=== PATIENT | female | born 1975 | race American Indian/Alaskan Native ===

== ENCOUNTER 2019-09-14 21:17 | Inpatient (IN) | payer SELFPAY ==
--- NOTE | 2019-09-14 21:45 | Event Note ---
ED Screening Note ED Screening Note: This initial assessment/diagnostic orders/clinical plan/treatment(s) is/are subject to change based on patients health status, clinical progression and re- assessment by fellow clinical providers in the ED. Further treatment and workup at subsequent clinical providers discretion. Patient/guardian urged not to elope from the ED as their condition may be serious if not clinically assessed and managed. Initial orders include: 44 BF c/o CP abdominal pain and diarrhea x 1 day.
--- NOTE | 2019-09-14 22:07 | XRay Report ---
CHEST 1 VIEW 09/14/2019 9:48 PM INDICATION / CLINICAL INFORMATION: Chest Pain. COMPARISON: None available. FINDINGS: SUPPORT DEVICES: None. HEART / MEDIASTINUM: No significant abnormality. LUNGS / PLEURA: No significant pulmonary or pleural abnormality. No pneumothorax. ADDITIONAL FINDINGS: No significant additional findings. IMPRESSION: 1. No acute findings. Signer Name: Butch Pitt MD Signed: 09/14/2019 10:03 PM Workstation Name: [id number]
[2019-09-14] MEDS ORDERED: NACL 0.9% 1000 ML 1,000 ML IV ONE ×2 (22:18→23:36)
[2019-09-14] MEDS ORDERED: HALDOL IM STA (22:18)
[2019-09-14] MEDS ORDERED: PEPCID IV ONE (22:19)
[2019-09-14] MEDS ORDERED: ZOSTRIX HP TP STA (22:20)
--- NOTE | 2019-09-14 22:22 | Emergency Department Report ---
ED General Adult HPI - General Chief complaint: Chest Pain Stated complaint: CX PAIN LUPUS STOMACH/BACK PAIN Time Seen by Provider: 09/14/19 22:01 Source: patient Mode of arrival: Wheelchair Limitations: Physical Limitation - History of Present Illness Initial comments: During the history and physical, I am chaperoned by nurse Peggy Gomez This is a 44-year-old female. This patient is not known to this provider previously. The patient is visiting from [facility]. Her past medical history includes lupus, stroke, heart attack, hypertension, stent, cannabis use. The patient reports that she arrived in the [facility] on Friday. It is currently Friday. She reports that since Friday, she's had multiple episodes of nausea and vomiting. Currently, her emesis is bloody. This is accompanied by central chest wall pain, abdominal pain and diarrhea. The patient denies urinary symptoms. She reports that she feels weak and fatigued. She reports that in [place], her symptoms typically improve with morphine, Reglan, and Zofran. -: Gradual, days(s) Location: chest, pelvis Radiation: back Quality: aching Consistency: constant Improves with: none Worsens with: movement - Related Data Allergies Allergy/AdvReac Type Severity Reaction Status Date / Time acetaminophen [From Tylenol] Allergy Unknown Verified 09/14/19 21:23 ED Review of Systems ROS: Stated complaint: CX PAIN LUPUS STOMACH/BACK PAIN Other details as noted in HPI Constitutional: malaise, weakness Eyes: denies: eye discharge ENT: denies: congestion Respiratory: denies: wheezing Cardiovascular: chest pain Gastrointestinal: abdominal pain, nausea, vomiting, diarrhea, hematemesis. denies: melena, hematochezia Genitourinary: denies: dysuria Musculoskeletal: back pain, myalgia Skin: denies: lesions Neurological: weakness Psychiatric: anxiety ED Past Medical Hx - Past Medical History Previous Medical History?: Yes Hx Hypertension: Yes Hx CVA: Yes Hx Heart Attack/AMI: Yes Additional medical history: lupus - Surgical History Past Surgical History?: Yes Hx Coronary Stent: Yes - Social History Smoking Status: Current Every Day Smoker Substance Use Type: None ED Physical Exam - General Limitations: Physical Limitation General appearance: alert, anxious, in distress - Head Head exam: Present: atraumatic, normocephalic - Eye Eye exam: Present: normal appearance, EOMI. Absent: nystagmus - ENT ENT exam: Present: mucous membranes dry, normal external ear exam - Neck Neck exam: Present: normal inspection, full ROM. Absent: tenderness, meningismus - Respiratory Respiratory exam: Present: normal lung sounds bilaterally, chest wall t enderness. Absent: respiratory distress - Cardiovascular Cardiovascular Exam: Present: normal rhythm, tachycardia, normal heart sounds. Absent: systolic murmur, diastolic murmur, rubs, gallop - GI/Abdominal GI/Abdominal exam: Present: soft, tenderness, other (abdomen is soft but diffusely tender. There is no rebound, guarding or peritoneal signs). Absent: distended, guarding, rebound, rigid, pulsatile mass - Extremities Exam Extremities exam: Present: normal inspection, full ROM, other (2+ pulses noted in the bilateral upper, lower extremities. There is no long bone tenderness. Musculoskeletal compartments are soft. The pelvis is stable.) - Back Exam Back exam: Present: normal inspection. Absent: CVA tenderness (R), paraspinal tenderness - Neurological Exam Neurological exam: Present: alert, other (is no facial droop. The tongue is midline. Extraocular movements are intact bilaterally. 5 out of 5 strength in 4 extremities.) - Psychiatric Psychiatric exam: Present: anxious - Skin Skin exam: Present: warm, dry, intact, normal color. Absent: rash ED Course Vital Signs 09/14/19 21:40 Temperature 97.6 F Pulse Rate 99 H Respiratory 18 Rate Blood Pressure 114/86 O2 Sat by Pulse 97 Oximetry - Reevaluation(s) Reevaluation #1: 09/14/19 23:43 Differential diagnosis, including not limited to: Obstruction, cyclic vomiting syndrome, narcotic bowel syndrome, cannabinoid hyperemesis syndrome, lupus fl are, Diana-Resendiz tear, upper GI bleed, GERD, gastritis, hiatal hernia, acute coronary syndrome, pulmonary embolism, pneumonia, irritable bowel syndrome, inflammatory bowel disease Assessment and plan: 44-year-old female with multiple medical issues with complaint of intractable nausea or vomiting, having active bloody emesis, tachycardia, laboratory studies demonstrate evidence of dehydration and anion gap acidosis, likely secondary to bicarbonate losses, likely secondary to nausea, vomiting and diarrhea. The patient is afebrile, and her tachycardia has resolved. Given her history of lupus, and recent travel from the [facility], a d- dimer was sent, and found to be slightly elevated. I think it is very unlikely that a pulmonary embolism is a single causative etiology to her presentation, however, nuclear medicine study is ordered. A CT scan of the abdomen and pelvis is ordered. Patient was started on a Protonix drip. Her symptoms were improved with intramuscular haloperidol. She'll need to be admitted to the medical service. We will await the remainder of her diagnostic studies. Reevaluation #2: 09/14/19 23:48 Stress with gastroenterology, Dr. Reza Ureña, who agrees to follow in consultation. Leukocytosis of 14,000 likely due to stress reaction, and hemoconcentration. Patient's laboratory studies demonstrating elevated hemoglob in and hematocrit at this time, also likely secondary to hemo- concentration. Reevaluation #3: 09/15/19 01:28 Nuclear medicine study is low probability for pulmonary embolism. X-ray the chest unremarkable. X-ray of the abdomen pelvis unremarkable. CT scan pending. Patient had complained of additional nausea, therefore, additional haloperidol was ordered. Urinalysis is pending at this time. Reevaluation #4: 09/15/19 02:38 Nuclear medicine study is low probability for pulmonary embolism. CT scan abdomen and pelvis demonstrates right-sided colitis, antibiotics, additional fluids, blood cultures ordered. Please note that there is delayed antibiotic administration as it took a very long time for the patient's diagnostics to be resulted. In addition, a small left-sided segmental pulmonary embolism is noted. Given that she has presumed active upper GI bleed, we would not empirically anticoagulate this at this time. The case was presented to Hospital physician, Dr. Barboza, who has accepted the patient to her service. ED Medical Decision Making - Lab Data Result diagrams: 09/15/19 00:06 09/14/19 22:25 Vital Signs 09/14/19 21:40 Temperature 97.6 F Pulse Rate 99 H Respiratory 18 Rate Blood Pressure 114/86 O2 Sat by Pulse 97 Oximetry Lab Results 09/14/19 09/14/19 09/14/19 Range/Units 22:25 22:25 22:25 PT 13.7 (12.2-14.9) Sec. INR 1.08 (0.87-1.13) D-Dimer 251.76 H (0-234) ng/mlDDU Sodium 149 H (137-145) mmol/L Potassium 3.4 L (3.6-5.0) mmol/L Chloride 98.8 (98-107) mmol/L Carbon Dioxide 13 L (22-30) mmol/L Anion Gap 41 mmol/L BUN 21 H (7-17) mg/dL Creatinine 1.1 (0.7-1.2) mg/dL Estimated GFR 54 ml/min BUN/Creatinine Ratio 19 % Glucose 94 (65-100) mg/dL Calcium 10.7 H (8.4-10.2) mg/dL Magnesium 2.70 H (1.7-2.3) mg/dL Total Bilirubin 0.60 (0.1-1.2) mg/dL Direct Bilirubin 0.2 (0-0.2) mg/dL Indirect Bilirubin 0.4 mg/dL AST 17 (5-40) units/L ALT 13 (7-56) units/L Alkaline Phosphatase 85 (35-129) units/L Total Creatine Kinase 136 H (30-135) units/L Troponin T < 0.010 (0.00-0.029) ng/mL Total Protein 9.7 H (6.3-8.2) g/dL Albumin 5.5 H (3.9-5) g/dL Albumin/Globulin Ratio 1.3 % Lipase (13-60) units/L HCG, Quant (0-4) mIU/mL 09/14/19 09/14/19 Range/Units 22:25 22:25 PT (12.2-14.9) Sec. INR (0.87-1.13) D-Dimer (0-234) ng/mlDDU Sodium (137-145) mmol/L Potassium (3.6-5.0) mmol/L Chloride (98-107) mmol/L Carbon Dioxide (22-30) mmol/L Anion Gap mmol/L BUN (7-17) mg/dL Creatinine (0.7-1.2) mg/dL Estimated GFR ml/min BUN/Creatinine Ratio % Glucose (65-100) mg/dL Calcium (8.4-10.2) mg/dL Magnesium (1.7-2.3) mg/dL Total Bilirubin (0.1-1.2) mg/dL Direct Bilirubin (0-0.2) mg/dL Indirect Bilirubin mg/dL AST (5-40) units/L ALT (7-56) units/L Alkaline Phosphatase (35-129) units/L Total Creatine Kinase (30-135) units/L Troponin T (0.00-0.029) ng/mL Total Protein (6.3-8.2) g/dL Albumin (3.9-5) g/dL Albumin/Globulin Ratio % Lipase 7 L (13-60) units/L HCG, Quant 0.886 (0-4) mIU/mL - EKG Data -: EKG Interpreted by Nh - EKG Data 09/14/19 23:43 The EKG is limited by motion artifact. There is no prior EKG available for comparison. This is a sinus tachycardia, 106 bpm, borderline leftward axis deviation, Q waves noted in the inferior leads, there is motion artifact, there is low voltage, the EKG is abnormal, the EKG is not consistent with ST elevation myocardial infarction. - Radiology Data Radiology results: pending, report reviewed, image reviewed Print Report Referring Physician: PAULA JOHNSON Patient Name: ANNETTE NAYAK Date of : 1975 Sex: Female Report Date: 2019-09-14 Report Status: Finalized Findings [facility] [address] [place] [address] XRay Report Signed Patient: ANNETTE NAYAK MR#: [id number] : 1975 Acct:[id number] Age/Sex: 44 / F ADM Date: 09/14/19 Loc: ED Attending Dr: Ordering Physician: PAULA JOHNSON MD Date of Service: 09/14/19 Procedure(s): XR chest 1V ap Accession Number(s): [id number] cc: PAULA JOHNSON MD Fluoro Time In Minutes: CHEST 1 VIEW 09/14/2019 9:48 PM INDICATION / CLINICAL INFORMATION: Chest Pain. COMPARISON: None available. FINDINGS: SUPPORT DEVICES: None. HEART / MEDIASTINUM: No significant abnormality. LUNGS / PLEURA: No significant pulmonary or pleural abnormality. No pneumothorax. ADDITIONAL FINDINGS: No significant additional findings. IMPRESSION: 1. No acute findings. Signer Name: Butch Pitt MD Signed: 09/14/2019 10:03 PM Workstation Name: [id number] Transcribed By: TL Dictated By: Butch Pitt MD Electronically Authenticated By: Butch Pitt MD Signed Date/Time: 09/14/19 9369 Critical Care Time: Yes Critical care time in (mins) excluding proc time.: 35 Critical care attestation.: If time is entered above; I have spent that time in minutes in the direct care of this critically ill patient, excluding procedure time. ED Disposition Clinical Impression: UGIB (upper gastrointestinal bleed), Dehydration, Nausea and vomiting, SIRS (systemic inflammatory response syndrome), Pulmonary embolism Disposition: DC-09 OP ADMIT IP TO THIS HOSP Is pt being admited?: Yes Condition: Serious
[2019-09-14 23:15] LABS: Albumin 5.5 g/dL (3.9-5); Bilirubin,Direct 0.2 mg/dL (0-0.2)
[2019-09-14 23:23] LABS: BUN/Creatinine Ratio 19; Blood Urea Nitrogen 21 mg/dL (7-17); Calcium 10.7 mg/dL (8.4-10.2); Hemolysis Index 15
[2019-09-14 23:27] LABS: INR 1.08 (0.87-1.13)
[2019-09-14 23:43] LABS: Basophils % (Auto) 0.3 % (0.0-1.8); Hematocrit 52.7 % (30.3-42.9); Hemoglobin 17.5 gm/dl (10.1-14.3); Lymphocytes # (Auto) 1.3 K/mm3 (1.2-5.4); Lymphocytes % (Auto) 9.4 % (13.4-35.0); Mean Corpuscular HGB Conc 33 % (30-34); Mean Corpuscular Volume 90 fl (79-97); Monocytes # (Auto) 0.6 K/mm3 (0.0-0.8); Monocytes % (Auto) 4.4 % (0.0-7.3); Platelet Count 480 K/mm3 (140-440); Red Blood Count 5.86 M/mm3 (3.65-5.03); Red Cell Distribution Width 14.2 % (13.2-15.2)
[2019-09-14] MEDS ORDERED: PROTONIX 80 MG in NACL 0.9% 100 ML IV SCH (23:45)
[2019-09-15] MEDS: KCL 10MEQ/100ML 10 MEQ/100 ML BAG IV SCH ×6 (00:21→10:00)
[2019-09-15 00:24] LABS: Hematocrit 51.3 % (30.3-42.9); Hemoglobin 17.2 gm/dl (10.1-14.3); Mean Corpuscular HGB Conc 33 % (30-34); Mean Corpuscular Volume 90 fl (79-97); Platelet Count 431 K/mm3 (140-440); Red Blood Count 5.72 M/mm3 (3.65-5.03); Red Cell Distribution Width 13.9 % (13.2-15.2)
[2019-09-15] MEDS ORDERED: HALDOL IM ONE (00:45)
--- NOTE | 2019-09-15 00:52 | XRay Report ---
ABDOMEN, 2 VIEWS 09/14/2019 INDICATION / CLINICAL INFORMATION: cp abd pain. COMPARISON: None available. FINDINGS: The intestinal gas pattern is normal. No evidence of pneumoperitoneum. Signer Name: Hari Valencia MD Signed: 09/15/2019 12:48 AM Workstation Name: [id number]
[2019-09-15] MEDS ORDERED: HALDOL IM PRN (00:56)
--- NOTE | 2019-09-15 01:08 | Nuclear Medicine Report ---
NM lung scan perf/vent INDICATION / CLINICAL INFORMATION: cp n/v. TECHNIQUE: Dose / Agent / Route: 5.3mCi technetium 99m MAA IV and 19.7mCi xenon-133 inhaled. COMPARISON: 09/14/2019 AP chest x-ray FINDINGS: Perfusion imaging is normal, no segmental or subsegmental perfusion defects. Ventilation images are normal. IMPRESSION: 1. Low probability for pulmonary embolism. Signer Name: Hari Valencia MD Signed: 09/15/2019 1:04 AM Workstation Name: [id number]
[2019-09-15] MEDS ORDERED: FLAGYL 500 MG/100 ML 500 MG/100 ML BAG IV ONE (02:35)
[2019-09-15] MEDS ORDERED: LEVAQUIN 500MG/100ML 500 MG/100 ML BAG IV ONE (02:35)
[2019-09-15] MEDS ORDERED: NACL 0.9% 500 ML 500 ML IV ONE (02:35)
--- NOTE | 2019-09-15 02:40 | Cat Scan Report ---
CT abdomen pelvis w con INDICATION / CLINICAL INFORMATION: abd pain n/vq. TECHNIQUE: All CT scans at this location are performed using CT dose reduction for ALARA by means of automated e xposure control. COMPARISON: None available. FINDINGS: Limited lower thoracic images a left lower lobe pulmonary arterial filling defect suggesting acute pu lmonary embolus.. A small hiatal hernia is identified. ABDOMEN: Mild hepatic parenchymal hypoattenuation is consistent with fatty infiltration. No focal hepatic lesi ons. The gallbladder, spleen, pancreas and adrenal glands are normal. No urinary calculi or hydronephrosis. A small left lower pole renal cyst is noted No mesenteric or retroperitoneal adenopathy. Mild mural edema is seen in the right colon. No small bowel distention or mesenteric edema. Pelvis: The appendix is normal. Diverticulosis is seen in the distal descending and sigmoid colon without evidence of acute diverticu litis. No dependent fluid collections are identified in the pelvis. Bilateral gluteal augmentation implants with no complication. No osseous abnormality. IMPRESSION: 1. Pulmonary embolism in the left lower lobe pulmonary artery. 2. Findings in the right colon suggesting colitis. 3. Left-sided diverticulosis. CRITICAL RESULT: Time of Discovery: 0129 hours Time of Communication: 0133 hours Licensed Practitioner Receiving Report: Dr Velásquez Read Back Performed: Yes. Signer Name: Hari Valencia MD Signed: 09/15/2019 2:35 AM Workstation Name: [id number]
[2019-09-15] MEDS ORDERED: SODIUM CHLORIDE FLUSH SYRINGE 10 ML IV PRN (03:11)
--- NOTE | 2019-09-15 03:16 | History and Physical Report ---
History of Present Illness Date of examination: 09/15/19 History of present illness: 44 -year-old woman with a history of lupus, CVA, coronary artery disease, hypertension, came from [place] on Friday to [place] 's emergency room with complaints of chest pain located in the left substernal area which she describes a sharp pain, started today, constant, no radiation, can't identify exacerbating or relieving factors. She's been having multiple episodes of nausea vomiting since she got here on Friday and state that she had multiple episodes of hematemesis. Also complaining of abdominal pain that also started on Friday which is sharp, constant, no radiation, intensity 6/10, cannot identify exacerbating factor. Admits to diarrhea, subjective fever and chills. Denies any blood in the stool. She is on Eliquis but has not taken Eliquis since Friday when her symptoms started eview Of Systems: Constitutional: no weight loss, fever, chills Ears, eyes, nose, mouth and throat: no nasal congestion, no nasal discharge, no sinus pressure, blurry vision, diplopia Neck: No neck pain or rigidity. Cardiovascular: No palpitations Respiratory: No shortness of breath, cough Gastrointestinal: No hematochezia Genitourinary : no dysuria, frequency , hematuria Musculoskeletal: no muscle ache , joint pain Integumentary: no rash, no pruritis Neurological: no parathesias, focal weakness Endocrine: no cold or heat intolerance, no polyuria or polydipsia Hematologic/Lymphatic: no easy bruising, no easy bleeding, no gland swelling Allergic/Immunologic: no urticaria, no angioedema. PAST MEDICAL HISTORY:lupus, CVA, coronary artery disease, hypertension PAST SURGICAL HISTORY: None FAMILY HISTORY:hypertension, diabetes SOCIAL HISTORY: Smoked 1 pack a day, + marijuana, no alcohol Medications and Allergies Allergies Allergy/AdvReac Type Severity Reaction Status Date / Time acetaminophen [From Tylenol] Allergy Unknown Verified 09/14/19 21:23 Active Meds: Active Medications Pantoprazole Sodium 80 mg/ (Sodium Chloride) 100 mls @ 10 mls/hr IV DIRECT YAN Last Admin: 09/15/19 00:21 Dose: 8 mg/hr, 10 mls/hr Documented by: Levofloxacin/Dextrose (Levaquin 500mg/100ml) 500 mg in 100 mls @ 100 mls/hr IV ONCE ONE; Protocol Stop: 09/15/19 03:34 Sodium Chloride (Nacl 0.9% 1000 Ml) 1,000 mls @ 125 mls/hr IV DIRECT YAN Metronidazole (Flagyl 500 Mg/100 Ml) 500 mg in 100 mls @ 100 mls/hr IV Q8HR YAN; Protocol Levofloxacin/Dextrose (Levaquin 750mg/150ml) 750 mg in 150 mls @ 100 mls/hr IV Q24HR YAN; Protocol Morphine Sulfate (Morphine) 2 mg IV Q4H PRN PRN Reason: Pain, Moderate (4-6) Ondansetron HCl (Zofran) 4 mg IV Q8H PRN PRN Reason: Nausea And Vomiting Sodium Chloride (Sodium Chloride Flush Syringe 10 Ml) 10 ml IV BID YAN Sodium Chloride (Sodium Chloride Flush Syringe 10 Ml) 10 ml IV PRN PRN PRN Reason: LINE FLUSH Exam - Physical Exam Narrative exam: General Apperance: The patient sitting in bed no acute distress HEENT: Normocephalic, atraumatic. Pupils equally round and reactive to light, extraocular movement intact, and no sclericterus or JVD or thyromegaly or nodule. Neck supple, no carotid bruit, mucous membranes moist, no exudate or erythema Heart: S1-S2, regular is rhythm Lungs: Clear to auscultation bilaterally, breathing comfortable Abdomen: Positive bowel sounds, soft, tender all over, nondistended, no organomegaly Extremities: No edema cyanosis clubbing Skin: no rash, nodule, warm and dry Neuro:CN 2 -12 intact, motor/sensory intact, speech is fluent - Constitutional Vitals: Temp Pulse Resp BP Pulse Ox 97.6 F 99 H 18 114/86 97 09/14/19 21:40 09/14/19 21:40 09/14/19 21:40 09/14/19 21:40 09/14/19 21:40 Results - Labs CBC & Chem 7: 09/15/19 00:06 09/14/19 22:25 Labs: Abnormal lab results 09/14/19 09/14/19 09/14/19 Range/Units 22:25 22:25 22:25 WBC 14.0 H (4.5-11.0) K/mm3 RBC 5.86 H (3.65-5.03) M/mm3 Hgb 17.5 H (10.1-14.3) gm/dl Hct 52.7 H (30.3-42.9) % Plt Count 480 H (140-440) K/mm3 Lymph % (Auto) 9.4 L (13.4-35.0) % Seg Neutrophils % 85.9 H (40.0-70.0) % Seg Neutrophils # 12.0 H (1.8-7.7) K/mm3 D-Dimer 251.76 H (0-234) ng/mlDDU Sodium 149 H (137-145) mmol/L Potassium 3.4 L (3.6-5.0) mmol/L Carbon Dioxide 13 L (22-30) mmol/L BUN 21 H (7-17) mg/dL Calcium 10.7 H (8.4-10.2) mg/dL Magnesium (1.7-2.3) mg/dL Total Creatine Kinase (30-135) units/L Total Protein (6.3-8.2) g/dL Albumin (3.9-5) g/dL Lipase (13-60) units/L 09/14/19 09/14/19 09/15/19 Range/Units 22:25 22:25 00:06 WBC 14.4 H (4.5-11.0) K/mm3 RBC 5.72 H (3.65-5.03) M/mm3 Hgb 17.2 H (10.1-14.3) gm/dl Hct 51.3 H (30.3-42.9) % Plt Count (140-440) K/mm3 Lymph % (Auto) (13.4-35.0) % Seg Neutrophils % (40.0-70.0) % Seg Neutrophils # (1.8-7.7) K/mm3 D-Dimer (0-234) ng/mlDDU Sodium (137-145) mmol/L Potassium (3.6-5.0) mmol/L Carbon Dioxide (22-30) mmol/L BUN (7-17) mg/dL Calcium (8.4-10.2) mg/dL Magnesium 2.70 H (1.7-2.3) mg/dL Total Creatine Kinase 136 H (30-135) units/L Total Protein 9.7 H (6.3-8.2) g/dL Albumin 5.5 H (3.9-5) g/dL Lipase 7 L (13-60) units/L - Imaging and Cardiology Chest x-ray: report reviewed Abdominal x-ray: report reviewed CT scan - abdomen: report reviewed CT scan - pelvis: report reviewed Assessment and Plan VQ scan showed low probability Assessment Acute colitis Pulmonary emboli Hematemesis Chest pain upus CVA coronary artery disease hypertension Plan Admit to medicine Start IV Levaquin, Flagyl, obtain stool cultures Check serial hemoglobin, continue Protonix drip, IVF No anticoagulation at this point, consult pulmonary, GI Cardiac enzymes, DVT prophylaxis, replete potassium
[2019-09-15] MEDS ORDERED: NACL 0.9% 1000 ML 1,000 ML IV SCH ×2 (04:00→12:00)
[2019-09-15 05:55] LABS: Creatine Kinase MB 2.7 ng/mL (0.0-4.0)
[2019-09-15] MEDS: MORPHINE IV PRN ×2 (06:57→12:53)
[2019-09-15] MEDS: ZOFRAN IV PRN ×2 (06:57→12:53)
[2019-09-15] MEDS ORDERED: D5NS 1,000 ML IV SCH (10:00)
[2019-09-15] MEDS ORDERED: ELIQUIS PO SCH (10:00)
--- NOTE | 2019-09-15 10:24 | Gastroenterology Consultation ---
History of Present Illness - Reason for Consult Consult date: 09/15/19 UGIB Requesting physician: PAULA JOHNSON - History of Present Illness Patient is a 44 y/o female with multiple medical conditions (lupus, CVA, CAD, HTN, clotting disorder?, etc.) who presented to ED with c/o CP, diffuse abd pain, N/V with bloody emesis, diarrhea, and fever/chills that began on Friday. Upon admission, NM scan showed a small left-sided segmental pulmonary embolism (anticoagulation currently being held due to GI bleed) and abd CT showed colitis. GI has been consulted for UGIB. This morning patient was resting in bed w/o acute distress but ill appearing (multiple episodes of vomiting during exam with non-bloody clear/bilious emesis). She reports multiple episodes of N/V that began on Friday with initial emesis being non-bloody, then became bloody yesterday with bright red blood. Denies SOB, wt loss, melena, constipation, or hematochezia. No hx of PUD or liver disease. Takes Eliquis (last dose Friday) and ASA at home. She states she has had multiple similar episodes of current GI symptoms (abd pain with N/V/D) in the past requiring hospitalizations with undergoing last EGD in July of this year while in [place] with no significant findings such as an ulcer. Unable to recall last colonoscopy. No hx or Fhx of IBD. No recent abx therapy, consumption of contaminated food/drink, or ill contacts. Admits to occasional marijuana use (states she has not used in last 4- 6 wks). Past History Past Medical History: other (as per HPI) Past Surgical History: Other (coronary stent) Social history: smoking, other (marijuana) Family history: diabetes, hypertension Medications and Allergies Allergies Allergy/AdvReac Type Severity Reaction Status Date / Time acetaminophen [From Tylenol] Allergy Unknown Verified 09/14/19 21:23 Active Meds: Active Medications Apixaban (Eliquis) 10 mg PO Q12HR YAN; Protocol Stop: 09/21/19 23:59 Metronidazole (Flagyl 500 Mg/100 Ml) 500 mg in 100 mls @ 100 mls/hr IV Q8H YAN; Protocol Levofloxacin/Dextrose (Levaquin 750mg/150ml) 750 mg in 150 mls @ 100 mls/hr IV Q24H YAN; Protocol Potassium Chloride (Kcl 10meq/100ml) 10 meq in 100 mls @ 100 mls/hr IV Q1H YAN Stop: 09/15/19 10:59 Dextrose/Sodium Chloride (D5ns) 1,000 mls @ 100 mls/hr IV DIRECT YAN Morphine Sulfate (Morphine) 2 mg IV Q4H PRN PRN Reason: Pain, Moderate (4-6) Last Admin: 09/15/19 06:57 Dose: 2 mg Documented by: Ondansetron HCl (Zofran) 4 mg IV Q8H PRN PRN Reason: Nausea And Vomiting Last Admin: 09/15/19 06:57 Dose: 4 mg Documented by: Pantoprazole Sodium (Protonix) 40 mg PO QDAY YAN Sodium Chloride (Sodium Chloride Flush Syringe 10 Ml) 10 ml IV BID YAN Sodium Chloride (Sodium Chloride Flush Syringe 10 Ml) 10 ml IV PRN PRN PRN Reason: LINE FLUSH medications reviewed/updated as required Review of Systems - Review of Systems All systems: negative Cardiovascular: chest pain Gastrointestinal: abdominal pain (diffuse), nausea, vomiting, diarrhea, hematemesis Exam - Constitutional Vital Signs: Temp Pulse Resp BP Pulse Ox 97.6 F 114 H 16 124/77 94 09/14/19 21:40 09/14/19 23:15 09/15/19 06:08 09/15/19 01:30 09/15/19 01:30 General appearance: no acute distress, other (ill appearing) - EENT Eyes: PERRL, EOM intact ENT: hearing intact - Respiratory Respiratory effort: normal - Cardiovascular Rhythm: other (tachycardia) - Gastrointestinal General gastrointestinal: Present: soft, tender, non-distended, normal bowel sounds - Neurologic Neurological: alert and oriented x3 - Labs CBC & Chem 7: 09/15/19 07:03 09/14/19 22:25 Lab Results: Laboratory Results - last 24 hr 09/14/19 09/14/19 09/14/19 22:25 22:25 22:25 WBC 14.0 H RBC 5.86 H Hgb 17.5 H Hct 52.7 H MCV 90 MCH 30 MCHC 33 RDW 14.2 Plt Count 480 H Lymph % (Auto) 9.4 L Power % (Auto) 4.4 Eos % (Auto) 0.0 Baso % (Auto) 0.3 Lymph # 1.3 Power # 0.6 Eos # 0.0 Baso # 0.0 Seg Neutrophils % 85.9 H Seg Neutrophils # 12.0 H PT 13.7 INR 1.08 D-Dimer 251.76 H Sodium 149 H Potassium 3.4 L Chloride 98.8 Carbon Dioxide 13 L Anion Gap 41 BUN 21 H Creatinine 1.1 Estimated GFR 54 BUN/Creatinine Ratio 19 Glucose 94 Lactic Acid Calcium 10.7 H Magnesium Total Bilirubin Direct Bilirubin Indirect Bilirubin AST ALT Alkaline Phosphatase Total Creatine Kinase CK-MB (CK-2) CK-MB (CK-2) Rel Index Troponin T < 0.010 Total Protein Albumin Albumin/Globulin Ratio Lipase HCG, Quant Blood Type Antibody Screen 09/14/19 09/14/19 09/14/19 22:25 22:25 22:25 WBC RBC Hgb Hct MCV MCH MCHC RDW Plt Count Lymph % (Auto) Power % (Auto) Eos % (Auto) Baso % (Auto) Lymph # Power # Eos # Baso # Seg Neutrophils % Seg Neutrophils # PT INR D-Dimer Sodium Potassium Chloride Carbon Dioxide Anion Gap BUN Creatinine Estimated GFR BUN/Creatinine Ratio Glucose Lactic Acid Calcium Magnesium 2.70 H Total Bilirubin 0.60 Direct Bilirubin 0.2 Indirect Bilirubin 0.4 AST 17 ALT 13 Alkaline Phosphatase 85 Total Creatine Kinase 136 H CK-MB (CK-2) CK-MB (CK-2) Rel Index Troponin T Total Protein 9.7 H Albumin 5.5 H Albumin/Globulin Ratio 1.3 Lipase 7 L HCG, Quant 0.886 Blood Type Antibody Screen 09/14/19 09/15/19 09/15/19 22:40 00:06 00:12 WBC 14.4 H RBC 5.72 H Hgb 17.2 H Hct 51.3 H MCV 90 MCH 30 MCHC 33 RDW 13.9 Plt Count 431 Lymph % (Auto) Power % (Auto) Eos % (Auto) Baso % (Auto) Lymph # Power # Eos # Baso # Seg Neutrophils % Seg Neutrophils # PT INR D-Dimer Sodium Potassium Chloride Carbon Dioxide Anion Gap BUN Creatinine Estimated GFR BUN/Creatinine Ratio Glucose Lactic Acid Calcium Magnesium Total Bilirubin Direct Bilirubin Indirect Bilirubin AST ALT Alkaline Phosphatase Total Creatine Kinase CK-MB (CK-2) CK-MB (CK-2) Rel Index Troponin T < 0.010 Total Protein Albumin Albumin/Globulin Ratio Lipase HCG, Quant Blood Type A POSITIVE Antibody Screen Negative 09/15/19 09/15/19 09/15/19 05:21 05:21 07:03 WBC RBC Hgb 14.0 D Hct 42.0 D MCV MCH MCHC RDW Plt Count Lymph % (Auto) Power % (Auto) Eos % (Auto) Baso % (Auto) Lymph # Power # Eos # Baso # Seg Neutrophils % Seg Neutrophils # PT INR D-Dimer Sodium Potassium Chloride Carbon Dioxide Anion Gap BUN Creatinine Estimated GFR BUN/Creatinine Ratio Glucose Lactic Acid 0.90 Calcium Magnesium Total Bilirubin Direct Bilirubin Indirect Bilirubin AST ALT Alkaline Phosphatase Total Creatine Kinase 131 CK-MB (CK-2) 2.7 CK-MB (CK-2) Rel Index 2.0 Troponin T < 0.010 Total Protein Albumin Albumin/Globulin Ratio Lipase HCG, Quant Blood Type Antibody Screen Assessment and Plan 1.UGIB/hematemesis -INR 1.08, Plt WNL -H/H WNL (14.0/42.0) -continue to monitor and transfuse as needed -anticoagulation currently on hold (last dose of Eliquis Friday) -no active signs of bleeding this am (no melena or hematochezia)- currently HD stable -etiology-likely M-M tear given history vs other -will schedule for EGD today -Keep NPO -continue PPI and supportive care -further recommendations to follow EGD results 2.colitis seen on CT 3.diffuse abd pain (cramping) 4.N/V 5.diarrhea -afebrile -WBC 14.4 -LFTs and lipase WNL -stool studies pending -etiology unclear- possibly infectious vs other. patient with multiple prior episodes of similar GI complaints requiring multiple hospitalizations (in other states) with undergoing prior endoscopic evaluation with EGD/colonoscopy with negative results per pt report (records unavailable) -no plan for colonoscopy at this time -continue empiric antibiotics and supportive care 6.CP/PE 7.lupus 8.H/o CVA 9.CAD (s/p coronary stent) 10.HTN 11.H/o clotting disorder? (per pt report)
[2019-09-15 10:29] LABS: Creatine Kinase MB 3.3 ng/mL (0.0-4.0)
[2019-09-15] MEDS: SODIUM CHLORIDE FLUSH SYRINGE 10 ML IV SCH ×2 (10:46→23:06)
[2019-09-15] MEDS ORDERED: PROTONIX PO SCH ×2 (11:00→22:00)
[2019-09-15] MEDS ORDERED: DIPRIVAN 10 MG/ML IV ONE (11:23)
--- NOTE | 2019-09-15 11:27 | Anesthesia Consultation ---
Anesthesia Consult and Med Hx Date of service: 09/15/19 - Airway Anesthetic Teeth Evaluation: Good ROM Head & Neck: Adequate Mental/Hyoid Distance: Adequate Mallampati Class: Class III Intubation Access Assessment: Possibly Difficult - Pulmonary Exam CTA: Yes - Cardiac Exam Cardiac Exam: RRR - Pre-Operative Health Status ASA Pre-Surgery Classification: ASA3 Proposed Anesthetic Plan: MAC - Pulmonary Hx Smoking: No Hx Respiratory Symptoms: Yes (acute PE this admission; no supplemental O2 requirement) SOB: Yes (chronic) Home Oxygen Therapy: No - Cardiovascular System Hx Hypertension: Yes Hx Heart Attack/AMI: Yes (2012; last cardiology visit 6mos ago per patient) Hx Percutaneous Transluminal Coronary Angioplasty (PTCA): Yes (2012) Hx Cardia Arrhythmia: No (QTc 560 on admission EKG) - Central Nervous System CVA: Yes (2013 w/ residual R weakness) - Gastrointestinal Hx Gastroesophageal Reflux Disease: No (hematemesis this admission, none today) - Endocrine Hx Renal Disease: No (hx SLE but patient denies hx renal involvement) Hx Liver Disease: No Hx Insulin Dependent Diabetes: No Hx Non-Insulin Dependent Diabetes: No Hx Thyroid Disease: No - Hematic Hx Anemia: No (?clotting disorder) - Other Systems Hx Obesity: No
--- NOTE | 2019-09-15 11:27 | Anesthesia Day of Surgery ---
Anesthesia Day of Surgery - Day of Surgery Patient Examined: Yes Patient H&P Reviewed: Yes Patient is NPO: Yes
[2019-09-15] MEDS ORDERED: PROTONIX IV SCH (12:00)
[2019-09-15] MEDS ORDERED: FLAGYL 500 MG/100 ML 500 MG/100 ML BAG IV SCH (14:00)
--- NOTE | 2019-09-15 14:21 | Consultation ---
History of Present Illness - Reason for Consult Consult date: 09/15/19 Reason for consult: Initial Psychiatric Evaluation - History of Present Psychiatric Illness Patient is a 44 year old female with a past medical history of lupus, CVA, coronary artery disease, and hypertension. Patient came from [place] on Friday to [facility] emergency room with complaints of chest pain located in the left substernal area which she describes a sharp pain, started today, constant, no radiation, can't identify exacerbating or relieving factors. She's been having multiple episodes of nausea vomiting since she got here on Friday and state that she had multiple episodes of hematemesis. Psychiatry was consulted due to patient's Today the patient is irritable and uncooperative during the assessment. She has a PPHx of depression. She reports decrease energy, decrease sleep, anhedonia, and a lack of motivation. Provider is unable to complete initial psychiatric evaluation secondary to nausea/vomiting. Provider spoke with assigned RN. RN states that patient has been irritable. Current Psychiatric Medications: Zoloft 100mg po QAM- last compliant with medication on 09/11/2019. Past Psychiatric History: Unable to Assess. Past Medication Trials: Unable to Assess. History of Drug/Alcohol Abuse: Unable to Assess. UDS results not available at this time. History of Trauma/Abuse: Unable to Assess. Social History: Unable to Assess. Family History of Psychiatric Illness/Substance Abuse: Unable to Assess. Medications and Allergies Allergies Allergy/AdvReac Type Severity Reaction Status Date / Time acetaminophen [From Tylenol] Allergy Unknown Verified 09/14/19 21:23 Active Meds: Active Medications Metronidazole (Flagyl 500 Mg/100 Ml) 500 mg in 100 mls @ 100 mls/hr IV Q8H YAN; Protocol Last Admin: 09/15/19 13:09 Dose: 100 mls/hr Documented by: Levofloxacin/Dextrose (Levaquin 750mg/150ml) 750 mg in 150 mls @ 100 mls/hr IV Q24H YAN; Protocol Dextrose/Sodium Chloride (D5ns) 1,000 mls @ 100 mls/hr IV DIRECT YAN Last Admin: 09/15/19 10:40 Dose: 100 mls/hr Documented by: Sodium Chloride (Nacl 0.9% 1000 Ml) 1,000 mls @ 50 mls/hr IV DIRECT YAN Last Admin: 09/15/19 11:12 Dose: 50 mls/hr Documented by: Morphine Sulfate (Morphine) 2 mg IV Q4H PRN PRN Reason: Pain, Moderate (4-6) Last Admin: 09/15/19 12:53 Dose: 2 mg Documented by: Ondansetron HCl (Zofran) 4 mg IV Q8H PRN PRN Reason: Nausea And Vomiting Last Admin: 09/15/19 12:53 Dose: 4 mg Documented by: Pantoprazole Sodium (Protonix) 40 mg IV BID [facility] Last Admin: 09/15/19 13:08 Dose: 40 mg Documented by: Sodium Chloride (Sodium Chloride Flush Syringe 10 Ml) 10 ml IV BID [facility] Last Admin: 09/15/19 10:46 Dose: 10 ml Documented by: Sodium Chloride (Sodium Chloride Flush Syringe 10 Ml) 10 ml IV PRN PRN PRN Reason: LINE FLUSH Mental Status Exam - Vital signs Last Vital Signs Temp 98.5 F 09/15/19 11:39 Pulse 82 09/15/19 12:18 Resp 16 09/15/19 13:23 BP 133/75 09/15/19 12:18 Pulse Ox 99 09/15/19 12:18 - Exam Narrative exam: Mental Status Exam Appearance: in hospital attire, uncooperative Behavior: poor eye contact Speech: regular rate and loud tone Mood: irritable Affect: constricted Thought Process: circumstantial Thought Content: denies SI/HI's, AVH's, and delusions Motor Activity: ambulatory Cognition: A/Ox 3 Insight: variable Judgment: variable Results Result Diagrams: 09/15/19 07:03 09/14/19 22:25 Abnormal lab results 09/14/19 09/14/19 09/14/19 Range/Units 22:25 22:25 22:25 WBC 14.0 H (4.5-11.0) K/mm3 RBC 5.86 H (3.65-5.03) M/mm3 Hgb 17.5 H (10.1-14.3) gm/dl Hct 52.7 H (30.3-42.9) % Plt Count 480 H (140-440) K/mm3 Lymph % (Auto) 9.4 L (13.4-35.0) % Seg Neutrophils % 85.9 H (40.0-70.0) % Seg Neutrophils # 12.0 H (1.8-7.7) K/mm3 D-Dimer 251.76 H (0-234) ng/mlDDU Sodium 149 H (137-145) mmol/L Potassium 3.4 L (3.6-5.0) mmol/L Carbon Dioxide 13 L (22-30) mmol/L BUN 21 H (7-17) mg/dL Calcium 10.7 H (8.4-10.2) mg/dL Magnesium (1.7-2.3) mg/dL Total Creatine Kinase (30-135) units/L Total Protein (6.3-8.2) g/dL Albumin (3.9-5) g/dL Lipase (13-60) units/L 09/14/19 09/14/19 09/15/19 Range/Units 22:25 22:25 00:06 WBC 14.4 H (4.5-11.0) K/mm3 RBC 5.72 H (3.65-5.03) M/mm3 Hgb 17.2 H (10.1-14.3) gm/dl Hct 51.3 H (30.3-42.9) % Plt Count (140-440) K/mm3 Lymph % (Auto) (13.4-35.0) % Seg Neutrophils % (40.0-70.0) % Seg Neutrophils # (1.8-7.7) K/mm3 D-Dimer (0-234) ng/mlDDU Sodium (137-145) mmol/L Potassium (3.6-5.0) mmol/L Carbon Dioxide (22-30) mmol/L BUN (7-17) mg/dL Calcium (8.4-10.2) mg/dL Magnesium 2.70 H (1.7-2.3) mg/dL Total Creatine Kinase 136 H (30-135) units/L Total Protein 9.7 H (6.3-8.2) g/dL Albumin 5.5 H (3.9-5) g/dL Lipase 7 L (13-60) units/L 09/15/19 Range/Units 09:38 WBC (4.5-11.0) K/mm3 RBC (3.65-5.03) M/mm3 Hgb (10.1-14.3) gm/dl Hct (30.3-42.9) % Plt Count (140-440) K/mm3 Lymph % (Auto) (13.4-35.0) % Seg Neutrophils % (40.0-70.0) % Seg Neutrophils # (1.8-7.7) K/mm3 D-Dimer (0-234) ng/mlDDU Sodium (137-145) mmol/L Potassium (3.6-5.0) mmol/L Carbon Dioxide (22-30) mmol/L BUN (7-17) mg/dL Calcium (8.4-10.2) mg/dL Magnesium (1.7-2.3) mg/dL Total Creatine Kinase 184 H (30-135) units/L Total Protein (6.3-8.2) g/dL Albumin (3.9-5) g/dL Lipase (13-60) units/L All other labs normal. Assessment and Plan Assessment and plan: Impression: PPHx MDD. Today the patient is irritable and uncooperative during the assessment. Provider unable to complete assessment due to nausea/vomiting. Recommendation/Plan: 1. Will reassess in 24 hours. 2. Will attempt to gain collateral to determine proper disposition. Disposition: Will reassess in 24 hours. Will staff with Dr. Cabrera.
--- NOTE | 2019-09-15 15:33 | Event Note ---
Date: 09/15/19 Patient seen and examined s/p EGD w/o any obvious findings, GI recommended to resume diet and AC ? PE on CT abdomen and VQ low probability due to to low sensitivity of VQ scan with confirm/rule out the dx PE with CTA chest cont current Mx and Plan as dictated in h/p
--- NOTE | 2019-09-15 15:59 | Post Operative Note ---
Pre-op diagnosis: hematemesis Post-op diagnosis: same Findings: EGD: medium hiatal hernia - mild irregular z-line from acid reflux - mild gastritis - negative other Procedure: EGD Anesthesia: MAC Surgeon: DOLORES FAULKNER Estimated blood loss: none Pathology: list Specimen disposition: to lab Condition: stable Disposition: floor
--- NOTE | 2019-09-15 16:37 | Operative Report ---
PROCEDURE: EGD. INDICATION: 1. Hematemesis. 2. Nausea, vomiting. MEDICATIONS: Propofol per IN SERVICE COORDINATOR. COMPLICATIONS: None. DESCRIPTION OF PROCEDURE: The patient brought to procedure suite. The patient had the procedure discussed with her at length. All risks, complications, and benefits discussed after which the patient signed for the procedure performed. The patient was placed in flat decubitus position. Mouth block was placed in the patient's oral cavity. After adequate sedation medication as above, endoscope placed in the mouth and brought to the level of the second portion of duodenum. Retroflexion view performed. The patient's vital signs remained stable throughout the procedure. FINDINGS: There was noted to be a medium hiatal hernia noted at GE junction at 37 cm from the gums. There is mild irritation at GE junction secondary to acid reflux. The esophagus otherwise appeared to be normal. There is mild antral gastritis. The stomach otherwise appeared to be normal. The duodenum appeared to be normal. Retroflexion view performed in the stomach showed no other pathology other than noted above. The patient tolerated the procedure well. No complications during the procedure. IMPRESSION: 1. Hiatal hernia. 2. Mild irritation from acid reflux. 3. Mild gastritis. 4. Otherwise, normal EGD. RECOMMENDATIONS: 1. Follow hematocrit and transfuse as needed. 2. Advance diet. 3. Okay to start anticoagulation as needed. 4. Okay to discharge from GI standpoint, we will sign off, call if needed. JOB# [id number] CAB/NTS
[2019-09-15] MEDS ORDERED: ATIVAN PO PRN (16:46)
[2019-09-15] MEDS ORDERED: PERCOCET 5/325 PO PRN ×2 (16:46)
[2019-09-15] MEDS: FLAGYL PO SCH ×2 (17:57→22:50)
[2019-09-15] MEDS: K-DUR PO SCH (17:57)
[2019-09-15] MEDS: PHENERGAN PR PRN (20:43)
--- NOTE | 2019-09-15 22:43 | Consultation ---
History of Present Illness Consult date: 09/15/19 Requesting physician: ROBINSON ADAIR Reason for consult: pulmonary embolism History of present illness: 44 yo admitted with N/V/D, hematemesis, abd pain, L anterior chest pain, subjective fevers, chills. Reports multiple episodes of PE, currently on Eliquis although none x 3 days due to bleeding. Records not available. Active Medications Apixaban (Eliquis) 5 mg PO Q12HR YAN; Protocol Levofloxacin/Dextrose (Levaquin 750mg/150ml) 750 mg in 150 mls @ 100 mls/hr IV Q24H YAN; Protocol Dextrose/Sodium Chloride (D5ns) 1,000 mls @ 100 mls/hr IV DIRECT YAN Last Admin: 09/15/19 10:40 Dose: 100 mls/hr Documented by: Sodium Chloride (Nacl 0.9% 1000 Ml) 1,000 mls @ 50 mls/hr IV DIRECT YAN Last Admin: 09/15/19 11:12 Dose: 50 mls/hr Documented by: Lorazepam (Ativan) 0.5 mg PO Q8H PRN PRN Reason: Agitation Metoclopramide HCl (Reglan) 10 mg PO ACHS YAN Metronidazole (Flagyl) 500 mg PO Q8HR YAN; Protocol Last Admin: 09/15/19 17:57 Dose: 500 mg Documented by: Ondansetron HCl (Zofran) 4 mg IV Q8H PRN PRN Reason: Nausea And Vomiting Last Admin: 09/15/19 12:53 Dose: 4 mg Documented by: Oxycodone/Acetaminophen (Percocet 5/325) 1 tab PO Q4H PRN PRN Reason: Pain, Moderate (4-6) Last Admin: 09/15/19 17:57 Dose: 1 tab Documented by: Oxycodone/Acetaminophen (Percocet 5/325) 2 tab PO Q6H PRN PRN Reason: Pain , Severe (7-10) Pantoprazole Sodium (Protonix) 40 mg PO BID YAN Potassium Chloride (K-Dur) 20 meq PO QDAY YAN Last Admin: 09/15/19 17:57 Dose: 20 meq Documented by: Promethazine HCl (Phenergan) 25 mg [place] Q6H PRN PRN Reason: N/V IF NPO AND NO IV ACCESS Last Admin: 09/15/19 20:43 Dose: 25 mg Documented by: Sodium Chloride (Sodium Chloride Flush Syringe 10 Ml) 10 ml IV BID YAN Last Admin: 09/15/19 10:46 Dose: 10 ml Documented by: Sodium Chloride (Sodium Chloride Flush Syringe 10 Ml) 10 ml IV PRN PRN PRN Reason: LINE FLUSH Past History Past Medical History: other (as per HPI) Past Surgical History: Other (coronary stent) Social history: smoking, other (marijuana) Family history: diabetes, hypertension Medications and Allergies Allergies Allergy/AdvReac Type Severity Reaction Status Date / Time acetaminophen [From Tylenol] Allergy Unknown Verified 09/14/19 21:23 Active Meds: Active Medications Apixaban (Eliquis) 5 mg PO Q12HR YAN; Protocol Levofloxacin/Dextrose (Levaquin 750mg/150ml) 750 mg in 150 mls @ 100 mls/hr IV Q24H YAN; Protocol Dextrose/Sodium Chloride (D5ns) 1,000 mls @ 100 mls/hr IV DIRECT YAN Last Admin: 09/15/19 10:40 Dose: 100 mls/hr Documented by: Sodium Chloride (Nacl 0.9% 1000 Ml) 1,000 mls @ 50 mls/hr IV DIRECT YAN Last Admin: 09/15/19 11:12 Dose: 50 mls/hr Documented by: Lorazepam (Ativan) 0.5 mg PO Q8H PRN PRN Reason: Agitation Metoclopramide HCl (Reglan) 10 mg PO ACHS YAN Metronidazole (Flagyl) 500 mg PO Q8HR YAN; Protocol Last Admin: 09/15/19 17:57 Dose: 500 mg Documented by: Ondansetron HCl (Zofran) 4 mg IV Q8H PRN PRN Reason: Nausea And Vomiting Last Admin: 09/15/19 12:53 Dose: 4 mg Documented by: Oxycodone/Acetaminophen (Percocet 5/325) 1 tab PO Q4H PRN PRN Reason: Pain, Moderate (4-6) Last Admin: 09/15/19 17:57 Dose: 1 tab Documented by: Oxycodone/Acetaminophen (Percocet 5/325) 2 tab PO Q6H PRN PRN Reason: Pain , Severe (7-10) Pantoprazole Sodium (Protonix) 40 mg PO BID YAN Potassium Chloride (K-Dur) 20 meq PO QDAY YAN Last Admin: 09/15/19 17:57 Dose: 20 meq Documented by: Promethazine HCl (Phenergan) 25 mg [place] Q6H PRN PRN Reason: N/V IF NPO AND NO IV ACCESS Last Admin: 09/15/19 20:43 Dose: 25 mg Documented by: Sodium Chloride (Sodium Chloride Flush Syringe 10 Ml) 10 ml IV BID YAN Last Admin: 09/15/19 10:46 Dose: 10 ml Documented by: Sodium Chloride (Sodium Chloride Flush Syringe 10 Ml) 10 ml IV PRN PRN PRN Reason: LINE FLUSH Review of Systems All systems: negative Physical Examination Vital signs: Vital Signs Temp Pulse Resp BP Pulse Ox 97.6 F 99 H 18 114/86 97 09/14/19 21:40 09/14/19 21:40 09/14/19 21:40 09/14/19 21:40 09/14/19 21:40 General appearance: no acute distress, alert Eyes: non-icteric ENT: oropharynx moist Neck: supple Effort: normal Ascultation: Bilateral: clear Cardiovascular: regular rate and rhythm (no mrg) Gastrointestinal: normoactive bowel sounds, soft, non-tender, non-distended Integumentary: normal Extremities: no cyanosis, no edema, pink and warm normal mental status, non-focal exam, pupils equal and round, CN II-XII normal other (blunted affect) Results - Laboratory Findings CBC and BMP: 09/15/19 07:03 09/14/19 22:25 PT/INR, D-dimer PT 13.7 Sec. (12.2-14.9) 09/14/19 22:25 INR 1.08 (0.87-1.13) 09/14/19 22:25 D-Dimer 251.76 ng/mlDDU (0-234) H 09/14/19 22:25 Abnormal lab findings: Abnormal Labs 09/14/19 09/14/19 09/14/19 22:25 22:25 22:25 WBC 14.0 H RBC 5.86 H Hgb 17.5 H Hct 52.7 H Plt Count 480 H Lymph % (Auto) 9.4 L Seg Neutrophils % 85.9 H Seg Neutrophils # 12.0 H D-Dimer 251.76 H Sodium 149 H Potassium 3.4 L Carbon Dioxide 13 L BUN 21 H Calcium 10.7 H Magnesium Total Creatine Kinase Total Protein Albumin Lipase 09/14/19 09/14/19 09/15/19 22:25 22:25 00:06 WBC 14.4 H RBC 5.72 H Hgb 17.2 H Hct 51.3 H Plt Count Lymph % (Auto) Seg Neutrophils % Seg Neutrophils # D-Dimer Sodium Potassium Carbon Dioxide BUN Calcium Magnesium 2.70 H Total Creatine Kinase 136 H Total Protein 9.7 H Albumin 5.5 H Lipase 7 L 09/15/19 09:38 WBC RBC Hgb Hct Plt Count Lymph % (Auto) Seg Neutrophils % Seg Neutrophils # D-Dimer Sodium Potassium Carbon Dioxide BUN Calcium Magnesium Total Creatine Kinase 184 H Total Protein Albumin Lipase - Diagnostic Findings Chest x-ray: report reviewed, image reviewed Assessment and Plan Imp: 1. Hx of Multiple episodes of PE, with ? currently LLL PE on CT a/p 2. Colitis 3. UGIB 4. Chronic nicotine dependence, cigarettes Rec: 1. Hold anticoagulation until GI deems safe to resume 2. Await CTA chest; if truly a PE this would indicate either treatment failure with the Eliquis (or suboptimal compliance with such), versus chronic PE 3. Stop smoking Plan of care reviewed w/ patient, she understands/agrees
[2019-09-15] MEDS: ELIQUIS PO SCH (22:50)
[2019-09-15] MEDS: REGLAN PO SCH (22:50)
[2019-09-15 23:53] LABS: Bacteria,Urine 2+ /HPF (Negative); Bilirubin,Urine NEG (Negative); Blood,Urine MOD (Negative); Color,Urine Yellow (Yellow); Mucus,Urine FEW /HPF; Protein,Urine <15 mg/dL mg/dL (Negative); Urobilinogen,Urine < 2.0 mg/dL (<2.0)
[2019-09-15 23:56] LABS: Amphetamine Screen,Urine PRESUMPTIVE NEGATIVE; Benzodiazepines Screen,Urine PRESUMPTIVE NEGATIVE; Cocaine Screen,Urine PRESUMPTIVE NEGATIVE; Methadone Screen,Urine PRESUMPTIVE NEGATIVE; Opiate Screen,Urine PRESUMPTIVE NEGATIVE
[2019-09-16 00:27] LABS: Cannabinoid Screen,Urine PRESUMPTIVE POSITIVE
[2019-09-16] MEDS: PHENERGAN PR PRN (01:41)
[2019-09-16] MEDS: LEVAQUIN 750MG/150ML 750 MG/150 ML BAG IV SCH (05:00)
[2019-09-16 05:35] LABS: Basophils # (Auto) 0.1 K/mm3 (0.0-0.1); Basophils % (Auto) 0.6 % (0.0-1.8); Hematocrit 44.5 % (30.3-42.9); Hemoglobin 15.1 gm/dl (10.1-14.3); Lymphocytes # (Auto) 1.6 K/mm3 (1.2-5.4); Lymphocytes % (Auto) 16.9 % (13.4-35.0); Mean Corpuscular HGB Conc 34 % (30-34); Mean Corpuscular Volume 91 fl (79-97); Monocytes # (Auto) 0.8 K/mm3 (0.0-0.8); Monocytes % (Auto) 8.4 % (0.0-7.3); Platelet Count 338 K/mm3 (140-440); Red Blood Count 4.92 M/mm3 (3.65-5.03); Red Cell Distribution Width 14.3 % (13.2-15.2)
[2019-09-16] MEDS: FLAGYL PO SCH (05:41)
[2019-09-16 05:56] LABS: BUN/Creatinine Ratio 15; Blood Urea Nitrogen 15 mg/dL (7-17); Hemolysis Index 17
[2019-09-16] MEDS: REGLAN PO SCH (08:09)
[2019-09-16] MEDS: SODIUM CHLORIDE FLUSH SYRINGE 10 ML IV SCH ×2 (11:11→22:00)
[2019-09-16] MEDS: ZOFRAN IV PRN ×2 (11:11→18:14)
--- NOTE | 2019-09-16 12:31 | Cat Scan Report ---
CTA CHEST WITH CONTRAST INDICATION : Shortness of breath, chest pain. TECHNIQUE: Axial imaging performed through the chest, with contrast bolus timing set to maximize opa cification of the pulmonary arteries. Sagittal and coronal reformatted images. 3-plane MIP reformatte d images were obtained. All CT scans at this location are performed using CT dose reduction for ALAR A by means of automated exposure control. 62 cc of Omnipaque 350 intravenous contrast administered. COMPARISON: VQ scan performed 09/15/2019 FINDINGS: Bolus: Contrast bolus timing is adequate. PTE: No filling defect is present to suggest PTE. Mediastinum: Heart and great vessels appear normal. No pathologic mediastinal adenopathy. The thyro id gland, tracheobronchial tree and esophagus are within normal limits. Moderate hiatal hernia is not ed. Lungs: Lungs are clear with no significant air space or interstitial disease. Bones: Intact. No significant degenerative changes Upper abdomen: Limited imaging of the upper abdomen shows nothing acute. Bilateral breast prosthese s are noted and intact. IMPRESSION: Negative for PTE. Clear lungs. Moderate hiatal hernia. Signer Name: Phillip Silva Jr, MD Signed: 09/16/2019 12:26 PM Workstation Name: [id number]
--- NOTE | 2019-09-16 12:57 | Progress Note ---
Subjective - Reason for Consult Consult date: 09/16/19 Reason for consult: Psychiatry Follow-up - Chief Complaint Chief complaint: "Hello" 44 year old AA female who presented to the hospital for N/V. Psychiatry was consulted to see the patient for a unknown psy issue. per the initial consult the patient has a hx of depression. Today the patient was calm and cooperative during the assessment. She was more engaging. She stated that she take Cymbalta and Zoloft for depression. She stated that she has a psychiatrist in [place] for outpatient psy services. She stated that she plan to return to [place] once she is discharged, The patient is concerned about her current medical issue at this time. She denies SI/HI's and AVH's. She prefer to start taking her antidepressants once her "medical issues" are resolved. Mental Status Exam - Vital signs Last Vital Signs Temp 98.2 F 09/16/19 08:00 Pulse 90 09/16/19 08:00 Resp 20 09/16/19 12:42 BP 121/67 09/16/19 08:00 Pulse Ox 100 09/16/19 10:00 - Exam Narrative exam: MSE: Appearance: calm, cooperative Behavior: regular eye contact Speech: regular rate and low tone Mood: "okay" Affect: congruent to mood Thought Process: linear Thought Content: denies SI/HI's and AVH's Motor Activity: lying in bed Cognition: A/O x 3 Insight: fair Judgment: appropriate Assessment and Plan Impression: Hx of Depression. Today the patient was calm and cooperative during the assessment. Recommendation/Plan: Discussed risk/benefits with the patient reference antidepressants, the patient prefer to start back on her medication once she is discharged from the hospital. She stated, "I don't want to be taking a lot of meds." Psy sign off. Dispo: The patient can follow up with psychiatrist in [place] or with [facility] for outpatient psy services. Staffed with Dr. Kenzie Cabrera.
[2019-09-16] MEDS ORDERED: MORPHINE IV ONE (13:00)
--- NOTE | 2019-09-16 13:28 | Progress Note ---
Assessment and Plan Imp: 1. Hx of Multiple episodes of PE, with ? currently LLL PE on CT a/p 2. Colitis 3. UGIB 4. Chronic nicotine dependence, cigarettes Rec: 1. Resume Eliquis 5mg BID and monitor for bleeding; reviewed CTA chest which is negative for PE and shows clear lungs 2. Stop smoking 3. Changed Reglan to IV per patient request since she is still vomiting 4. Will sign off; please call or re-consult prn Plan of care reviewed w/ patient, she understands/agrees Subjective Date of service: 09/16/19 Principal diagnosis: PE Interval history: No events. No bleeding, back on Eliquis. Still vomiting though. Active Medications Apixaban (Eliquis) 5 mg PO Q12HR YAN; Protocol Last Admin: 09/15/19 22:50 Dose: 5 mg Documented by: Levofloxacin/Dextrose (Levaquin 750mg/150ml) 750 mg in 150 mls @ 100 mls/hr IV Q24H YAN; Protocol Last Admin: 09/16/19 05:00 Dose: Not Given Documented by: Sodium Chloride (Nacl 0.9% 1000 Ml) 1,000 mls @ 50 mls/hr IV DIRECT YAN Last Admin: 09/15/19 11:12 Dose: 50 mls/hr Documented by: Potassium Chloride 40 meq/ (Dextrose/Sodium Chloride) 1,020 mls @ 100 mls/hr IV DIRECT YAN Metronidazole (Flagyl 500 Mg/100 Ml) 500 mg in 100 mls @ 100 mls/hr IV Q8HR YAN; Protocol Lorazepam (Ativan) 0.5 mg PO Q8HR YAN Metoclopramide HCl (Reglan) 10 mg IV ACHS YAN Ondansetron HCl (Zofran) 4 mg IV Q8H PRN PRN Reason: Nausea And Vomiting Last Admin: 09/16/19 11:11 Dose: 4 mg Documented by: Oxycodone/Acetaminophen (Percocet 5/325) 1 tab PO Q4H PRN PRN Reason: Pain, Moderate (4-6) Last Admin: 09/15/19 17:57 Dose: 1 tab Documented by: Oxycodone/Acetaminophen (Percocet 5/325) 2 tab PO Q6H PRN PRN Reason: Pain , Severe (7-10) Pantoprazole Sodium (Protonix) 40 mg IV BID YAN Potassium Chloride (K-Dur) 20 meq PO QDAY YAN Last Admin: 09/15/19 17:57 Dose: 20 meq Documented by: Promethazine HCl (Phenergan) 25 mg CO Q6H PRN PRN Reason: N/V IF NPO AND NO IV ACCESS Last Admin: 09/16/19 01:41 Dose: 25 mg Documented by: Sodium Chloride (Sodium Chloride Flush Syringe 10 Ml) 10 ml IV BID YAN Last Admin: 09/16/19 11:11 Dose: 10 ml Documented by: Sodium Chloride (Sodium Chloride Flush Syringe 10 Ml) 10 ml IV PRN PRN PRN Reason: LINE FLUSH Objective Vital Signs - 12hr 09/16/19 09/16/19 09/16/19 03:43 03:46 06:00 Temperature 98.7 F Pulse Rate 90 90 Respiratory 18 Rate Blood Pressure 108/60 O2 Sat by Pulse 100 Oximetry 09/16/19 09/16/19 09/16/19 08:00 10:00 11:52 Temperature 98.2 F 97.3 F L Pulse Rate 90 83 Respiratory 18 18 Rate Blood Pressure 121/67 135/77 O2 Sat by Pulse 99 100 99 Oximetry 09/16/19 12:42 Temperature Pulse Rate Respiratory 20 Rate Blood Pressure O2 Sat by Pulse Oximetry Constitutional: no acute distress, alert Eyes: non-icteric ENT: oropharynx moist Neck: supple Effort: normal Ascultation: Bilateral: clear Cardiovascular: regular rate and rhythm (no mrg) Gastrointestinal: normoactive bowel sounds, soft, non-tender, non-distended Integumentary: normal Extremities: no cyanosis, no edema, pink and warm Neurologic: normal mental status, non-focal exam, pupils equal and round, CN II- XII normal Psychiatric: other (blunted affect) CBC and BMP: 09/16/19 04:39 09/16/19 04:39 ABG, PT/INR, D-dimer: PT/INR, D-dimer PT 13.7 Sec. (12.2-14.9) 09/14/19 22:25 INR 1.08 (0.87-1.13) 09/14/19 22:25 D-Dimer 251.76 ng/mlDDU (0-234) H 09/14/19 22:25 Abnormal lab findings: Abnormal Labs 09/14/19 09/14/19 09/14/19 22:25 22:25 22:25 WBC 14.0 H RBC 5.86 H Hgb 17.5 H Hct 52.7 H Plt Count 480 H Lymph % (Auto) 9.4 L [place] % (Auto) Seg Neutrophils % 85.9 H Seg Neutrophils # 12.0 H D-Dimer 251.76 H Sodium 149 H Potassium 3.4 L Chloride Carbon Dioxide 13 L BUN 21 H Calcium 10.7 H Magnesium Total Creatine Kinase Total Protein Albumin Lipase 09/14/19 09/14/19 09/15/19 22:25 22:25 00:06 WBC 14.4 H RBC 5.72 H Hgb 17.2 H Hct 51.3 H Plt Count Lymph % (Auto) [place] % (Auto) Seg Neutrophils % Seg Neutrophils # D-Dimer Sodium Potassium Chloride Carbon Dioxide BUN Calcium Magnesium 2.70 H Total Creatine Kinase 136 H Total Protein 9.7 H Albumin 5.5 H Lipase 7 L 09/15/19 09/16/19 09/16/19 09:38 04:39 04:39 WBC RBC Hgb 15.1 H Hct 44.5 H Plt Count Lymph % (Auto) [place] % (Auto) 8.4 H Seg Neutrophils % 74.1 H Seg Neutrophils # D-Dimer Sodium 152 H Potassium 3.5 L Chloride 109.6 H Carbon Dioxide 19 L BUN Calcium Magnesium Total Creatine Kinase 184 H Total Protein Albumin Lipase Chest x-ray: report reviewed, image reviewed CT scan - chest: report reviewed, image reviewed
[2019-09-16] MEDS: PROTONIX IV SCH ×2 (14:50→21:59)
[2019-09-16] MEDS: FLAGYL 500 MG/100 ML 500 MG/100 ML BAG IV SCH ×2 (14:55→21:58)
--- NOTE | 2019-09-16 16:17 | Progress Note ---
Assessment and Plan Acute colitis with sepsis, continue IV Levaquin, Flagyl, follow stool culture Pulmonary emboli - ruled out with negative CTA Intractable nausea and vomiting - continue Protonix IV, scheduled Reglan and as needed Zofran Hematemesis - EGD showed mild esophagitis otherwise normal findings Chest pain - likely from esophagitis, stress test was normal lupus - outpatient follow-up, continue eliquis CVA, supportive care, no acute focal motor deficit coronary artery disease, continue medical management, stress test was normal hypertension, continue to monitor BP, hydralazine as needed Hypokalemia and hyponatremia - continue IV fluid with normal saline D5, replete potassium, monitor BMP DVT prophylaxis, SCD Physical exam: GENERAL: well-developed and well-nourished -[place] female lying on bed appeared to be in mild discomfort. HEENT: Normocephalic. Atraumatic. No conjunctival congestion or icterus. Patient has moist mucous membranes. NECK: Supple. Trachea midline. CHEST/LUNGS: Clear to auscultated bilaterally, breathing nonlabored. No wheezes crackles or rhonchi. HEART/CARDIOVASCULAR: Regular in rate and rhythm. S1 and S2 positive. ABDOMEN: Abdomen is soft, mild tender. Patient has normal bowel sounds. SKIN: There is no rash. Warm and dry. NEURO: No focal motor deficit. Follows command. MUSCULOSKELETAL: No joint effusion or tenderness. EXTRIMITY: No edema, no cyanosis or clubbing. PSYCH: Cooperative. Subjective Date of service: 09/16/19 Principal diagnosis: PE Interval history: Patient seen and examined. Medical records and medication list reviewed. No acute event overnight noted by the RN. Patient denies any chest pain or difficulty breathing. Unable to tolerate by mouth and continue to complaints of nausea and abdominal pain Discussed plan of care at bedside with patient. Objective - Constitutional Vitals: Vital Signs - 12hr 09/16/19 09/16/19 09/16/19 06:00 08:00 10:00 Temperature 98.2 F Pulse Rate 90 90 Respiratory 18 Rate Blood Pressure 121/67 O2 Sat by Pulse 99 100 Oximetry 09/16/19 09/16/19 09/16/19 11:52 12:42 14:00 Temperature 97.3 F L Pulse Rate 83 84 Respiratory 18 20 Rate Blood Pressure 135/77 O2 Sat by Pulse 99 Oximetry - Labs CBC & Chem 7: 09/16/19 04:39 10/18/19 04:39 Labs: Abnormal lab results 09/16/19 09/16/19 Range/Units 04:39 04:39 Hgb 15.1 H (10.1-14.3) gm/dl Hct 44.5 H (30.3-42.9) % [place] % (Auto) 8.4 H (0.0-7.3) % Seg Neutrophils % 74.1 H (40.0-70.0) % Sodium 152 H (137-145) mmol/L Potassium 3.5 L (3.6-5.0) mmol/L Chloride 109.6 H (98-107) mmol/L Carbon Dioxide 19 L (22-30) mmol/L
[2019-09-16] MEDS: REGLAN IV SCH ×2 (17:00→21:59)
[2019-09-16] MEDS: KCL 40 MEQ in D5NS 1,000 ML IV SCH (18:15)
[2019-09-16] MEDS: K-DUR PO SCH (19:40)
[2019-09-16] MEDS: ELIQUIS PO SCH ×2 (19:40→22:00)
[2019-09-16] MEDS: ATIVAN PO SCH ×2 (19:41→22:00)
[2019-09-17] MEDS: ZOFRAN IV PRN ×3 (03:28→18:03)
[2019-09-17] MEDS: LEVAQUIN 750MG/150ML 750 MG/150 ML BAG IV SCH (05:19)
[2019-09-17] MEDS: FLAGYL 500 MG/100 ML 500 MG/100 ML BAG IV SCH ×3 (05:19→21:11)
[2019-09-17 06:12] LABS: BUN/Creatinine Ratio 10; Blood Urea Nitrogen 10 mg/dL (7-17); Calcium 9.4 mg/dL (8.4-10.2); Hemolysis Index 4
[2019-09-17] MEDS: KCL 40 MEQ in D5NS 1,000 ML IV SCH (06:51)
[2019-09-17] MEDS: ATIVAN PO SCH ×3 (06:51→21:12)
[2019-09-17] MEDS: REGLAN IV SCH ×4 (06:51→21:12)
[2019-09-17] MEDS ORDERED: D5W/0.45% NACL/KCL 30 MEQ 30 MEQ/1,000 ML BAG IV SCH (10:00)
[2019-09-17] MEDS: ELIQUIS PO SCH ×2 (10:49→21:12)
[2019-09-17] MEDS: PROTONIX PO SCH (10:49)
[2019-09-17] MEDS: K-DUR PO SCH (10:49)
[2019-09-17] MEDS: SODIUM CHLORIDE FLUSH SYRINGE 10 ML IV SCH ×2 (10:50→21:12)
--- NOTE | 2019-09-17 12:39 | Progress Note ---
Assessment and Plan Acute colitis with sepsis, continue IV Levaquin, Flagyl, stool culture so far negative Pulmonary emboli - ruled out with negative CTA Intractable nausea and vomiting - continue Protonix IV, scheduled Reglan and as needed Zofran Hematemesis - EGD showed mild esophagitis otherwise normal findings Chest pain - likely from esophagitis, stress test was normal lupus - outpatient follow-up, continue eliquis CVA, supportive care, no acute focal motor deficit coronary artery disease, continue medical management, stress test was normal hypertension, continue to monitor BP, hydralazine as needed Hypokalemia and hyponatremia - continue IV fluid with normal saline D5, replete potassium, monitor BMP DVT prophylaxis, SCD Disposition: We will monitor her BMP 1 more day, if sodium and potassium normal we'll discharge tomorrow morning Physical exam: GENERAL: well-developed and well-nourished -[place] female lying on bed appeared to be in mild discomfort. HEENT: Normocephalic. Atraumatic. No conjunctival congestion or icterus. Patient has moist mucous membranes. NECK: Supple. Trachea midline. CHEST/LUNGS: Clear to auscultated bilaterally, breathing nonlabored. No wheezes crackles or rhonchi. HEART/CARDIOVASCULAR: Regular in rate and rhythm. S1 and S2 positive. ABDOMEN: Abdomen is soft, mild tender. Patient has normal bowel sounds. SKIN: There is no rash. Warm and dry. NEURO: No focal motor deficit. Follows command. MUSCULOSKELETAL: No joint effusion or tenderness. EXTRIMITY: No edema, no cyanosis or clubbing. PSYCH: Cooperative. Subjective Date of service: 09/17/19 Principal diagnosis: PE Interval history: Patient seen and examined. Medical records and medication list reviewed. No acute event overnight noted by the RN. Patient denies any chest pain or difficulty breathing. States that Unable to tolerate by mouth and continue to complaints of nausea and abdominal pain Discussed plan of care at bedside with patient. Objective - Constitutional Vitals: Vital Signs - 12hr 09/17/19 09/17/19 09/17/19 05:16 05:20 07:55 Temperature 98.4 F 97.5 F L Pulse Rate 80 Respiratory 18 18 Rate Blood Pressure 126/76 134/79 O2 Sat by Pulse 99 Oximetry - Labs CBC & Chem 7: 09/16/19 04:39 09/17/19 04:39 Labs: Abnormal lab results 09/17/19 Range/Units 04:39 Sodium 151 H (137-145) mmol/L Potassium 3.1 L (3.6-5.0) mmol/L Chloride 111.2 H (98-107) mmol/L Glucose 125 H (65-100) mg/dL
[2019-09-17] MEDS: MORPHINE IV PRN (23:04)
[2019-09-18] MEDS: ZOFRAN IV PRN (03:32)
[2019-09-18] MEDS: LEVAQUIN 750MG/150ML 750 MG/150 ML BAG IV SCH (05:42)
[2019-09-18] MEDS: FLAGYL 500 MG/100 ML 500 MG/100 ML BAG IV SCH ×2 (05:42→14:46)
[2019-09-18] MEDS: REGLAN IV SCH ×3 (06:34→17:33)
[2019-09-18] MEDS: ATIVAN PO SCH ×2 (06:34→14:46)
[2019-09-18] MEDS: MORPHINE IV PRN ×2 (07:55→11:59)
[2019-09-18] MEDS: PROTONIX PO SCH (10:58)
[2019-09-18] MEDS: K-DUR PO SCH ×2 (10:58→12:02)
[2019-09-18] MEDS: SODIUM CHLORIDE FLUSH SYRINGE 10 ML IV SCH (10:58)
[2019-09-18] MEDS: ELIQUIS PO SCH (10:58)
--- NOTE | 2019-09-18 11:43 | Progress Note ---
Subjective - Reason for Consult Consult date: 09/18/19 Reason for consult: Psychiatric Follow-up Evaluation - Chief Complaint Chief complaint: "I'm tired of being sick" Patient is a 44 year old AA female who presented to the hospital for N/V. Psychiatry was consulted to see the patient for a unknown psy issue. per the initial consult the patient has a hx of depression. Today the patient is cooperative but irritable during the assessment. Patient not very engaging. She reports " I'm not able to keep any food down without throwing up." She stated that she take Cymbalta and Zoloft for depression. She stated that she has a psychiatrist in [place] for outpatient psy services. She stated that she plan to return to [place] once she is discharged, The patient is concerned about her current medical issue at this time. She denies SI/HI's, AVH's, and delusions. She prefer to start taking her antidepressants once her "medical issues" are resolved. Mental Status Exam - Vital signs Last Vital Signs Temp 97.4 F L 09/18/19 08:52 Pulse 83 09/18/19 08:52 Resp 18 09/18/19 08:52 BP 125/78 09/18/19 08:52 Pulse Ox 96 09/18/19 08:52 - Exam Narrative exam: Mental Status Exam Appearance: cooperative, irritable Behavior: poor eye contact Speech: regular rate and low tone Mood: "the same" ; depressed Affect: congruent to mood Thought Process: linear Thought Content: denies SI/HI's, AVH's, and delusions Motor Activity: lying in bed Cognition: A/O x 3 Insight: fair Judgment: appropriate Assessment and Plan Impression: Hx of Depression. Today the patient was calm and cooperative during the assessment. Recommendation/Plan: Discussed risk/benefits with the patient reference antidepressants, the patient prefer to start back on her medication once she is discharged from the hospital. She stated, "I don't want to be taking a lot of meds." Psy sign off. Disposition: The patient can follow up with psychiatrist in [place] or with [facility] for outpatient psy services. Staffed with Dr. Kenzie Cabrera.
--- NOTE | 2019-09-18 15:18 | Discharge Summary ---
Providers - Providers Date of Admission: 09/15/19 04:52 Date of discharge: 09/18/19 Attending physician: TRINY RADER 09/15/19 00:43 Consult to Physician [CONS] Urgent Comment: was called and aware Consulting Provider: DOLORES FAULKNER Physician Instructions: Reason For Exam: ugib 09/15/19 03:11 Consult to Physician [CONS] Routine Comment: Consulting Provider: JOSE RIVERS Physician Instructions: Reason For Exam: pe/gib 09/15/19 16:04 Midline [Consult to PICC Line RN] [CONS] Stat Reason For Exam: need iv abx and difficult to stick Type Line:: Midline Primary care physician: RADIO INTERFERENCE SUPERVISOR Hospitalization Condition: Serious Pertinent studies: Abdomen pelvis CT Chest x-ray Abdominal x-ray Pulmonary VQ scan CTA of chest Procedures: EGD Hospital course: Patient is a 44 y/o female with multiple medical conditions (lupus, CVA, CAD, HTN, clotting disorder?, etc.) who presented to ED with c/o CP, diffuse abd pain, N/V with bloody emesis, diarrhea, and fever/chills that began on Friday. Upon admission, NM scan showed a small left-sided segmental pulmonary embolism (anticoagulation currently being held due to GI bleed) and abd CT showed colitis. GI has been consulted for UGIB. This morning patient was resting in bed w/o acute distress but ill appearing (multiple episodes of vomiting during exam with non-bloody clear/bilious emesis). She reports multiple episodes of N/V that began on Friday with initial emesis being non-bloody, then became bloody yesterday with bright red blood. Denies SOB, wt loss, melena, constipation, or hematochezia. No hx of PUD or liver disease. Takes Eliquis (last dose Friday) and ASA at home. She states she has had multiple similar episodes of current GI symptoms (abd pain with N/V/D) in the past requiring hospitalizations with undergoing last EGD in July of this year while in [place] with no significant findings such as an ulcer. Unable to recall last colonoscopy. No hx or Fhx of IBD. No recent abx therapy, consumption of contaminated food/drink, or ill contacts. Admits to occasional marijuana use (states she has not used in last 4- 6 wks). Discharge diagnosis: Acute colitis with sepsis, Placed on IV Levaquin, Flagyl, stool culture so far negative Pulmonary emboli - ruled out with negative CTA Intractable nausea and vomiting - managed with Protonix IV, scheduled Reglan and as needed Zofran Hematemesis - EGD showed mild esophagitis otherwise normal findings Chest pain - likely from esophagitis, stress test was normal lupus - outpatient follow-up, continue eliquis CVA, supportive care, no acute focal motor deficit Coronary artery disease, will continue medical management, stress test was normal hypertension, continue to monitor BP, hydralazine as needed Hypokalemia and hyponatremia - given IV fluid with normal saline D5, repleted potassium, monitored BMP Substance abuse with marijuana, counseled DVT prophylaxis, SCD Disposition: Home with self-care Physical exam: GENERAL: well-developed and well-nourished -Spanish female lying on bed appeared to be in mild discomfort. HEENT: Normocephalic. Atraumatic. No conjunctival congestion or icterus. Patient has moist mucous membranes. NECK: Supple. Trachea midline. CHEST/LUNGS: Clear to auscultated bilaterally, breathing nonlabored. No wheezes crackles or rhonchi. HEART/CARDIOVASCULAR: Regular in rate and rhythm. S1 and S2 positive. ABDOMEN: Abdomen is soft, mild tender. Patient has normal bowel sounds. SKIN: There is no rash. Warm and dry. NEURO: No focal motor deficit. Follows command. MUSCULOSKELETAL: No joint effusion or tenderness. EXTRIMITY: No edema, no cyanosis or clubbing. PSYCH: Cooperative. Disposition: - TO HOME OR SELFCARE Time spent for discharge: 34 minutes Core Measure Documentation - Palliative Care Palliative Care/ Comfort Measures: Not Applicable - Core Measures Any of the following diagnoses?: none Exam - Constitutional Vitals: Temp Pulse Resp BP Pulse Ox 98.3 F 80 18 140/78 100 09/18/19 12:52 09/18/19 12:52 09/18/19 12:52 09/18/19 12:52 09/18/19 12:52 Plan Activity: advance as tolerated Weight Bearing Status: Weight Bear as Tolerated Diet: advance as tolerated Follow up with: [facility] [Outside] - 7 Days PRIMARY CARE, [Primary Care Provider] - 7 Days BAHMAN BAL MD [Staff Physician] - 7 Days Prescriptions: Apixaban [Eliquis] 5 mg PO Q12HR #60 tablet Potassium Chloride [K-Dur] 20 meq PO QDAY #4 tablet Pantoprazole [Protonix TAB] 40 mg PO DAILY #30 tablet Metoclopramide [Reglan] 10 mg PO ACHS #20 tablet
[2019-09-18 16:38] LABS: BUN/Creatinine Ratio 8; Blood Urea Nitrogen 5 mg/dL (7-17); Calcium 8.6 mg/dL (8.4-10.2); Hemolysis Index 124
[2019-09-18 19:24] VITALS: BP 126/77
== END 2019-09-18 21:10 | disposition home or self-care (01) | DRG 871 ==
LOC: ED 21:17 → 4A 09-15 04:52
PROVIDERS: ADMIT Internal Medicine; ATTEND Internal Medicine
PROC: 0DJ08ZZ Inspection of Upper Intestinal Tract, Via Natural or Artificial Opening Endoscopic (ICD-10-PCS; principal; 2019-09-15)
DX: A41.9 Sepsis, unspecified organism (principal); K29.71 Gastritis, unspecified, with bleeding; E87.1 Hypo-osmolality and hyponatremia; I69.351 Hemiplegia and hemiparesis following cerebral infarction affecting right dominant side; K52.9 Noninfective gastroenteritis and colitis, unspecified; I25.10 Atherosclerotic heart disease of native coronary artery without angina pectoris; I10 Essential (primary) hypertension; E86.0 Dehydration; K44.9 Diaphragmatic hernia without obstruction or gangrene; F12.10 Cannabis abuse, uncomplicated; F32.9 Major depressive disorder, single episode, unspecified; K20.9 Esophagitis, unspecified; E87.6 Hypokalemia; F17.210 Nicotine dependence, cigarettes, uncomplicated; Z82.49 Family history of ischemic heart disease and other diseases of the circulatory system; Z83.3 Family history of diabetes mellitus; Z88.8 Allergy status to other drugs, medicaments and biological substances; Z86.711 Personal history of pulmonary embolism; I25.2 Old myocardial infarction; Z95.5 Presence of coronary angioplasty implant and graft; Z71.51 Drug abuse counseling and surveillance of drug abuser
CPT/HCPCS: 36415; 71045; 71275; 74019; 74177; 78582; 80048; 80076; 80307; 81001; 82140; 82550; 82553; 83690; 83735; 84484; 84702; 85007; 85014; 85018; 85025; 85027; 85379; 85610; 86850; 86900; 86901; 87040; 87045; 93005; 93010; 99406; G0378; A9540; A9558; C9113; J1630; J1956; J2270; J2405; J2704; J2765; J3480; J7030; J7040; J7042; Q9967